=== PATIENT | male | born 1950 | race Caucasian/White ===

== ENCOUNTER 2021-04-26 10:54 | Inpatient (IN) | payer MEDICARE, OTHER ==
[~2021-04-26] VITALS: Ht 165.1 cm; Wt 63.6 kg
[2021-04-26 12:26] LABS: BASO # 0.1 (0.0-0.2); BASO % 0.8 % (0.0-2.0); EOS # 0.1 (0.0-0.7); EOS % 2.1 % (0-4.0); GRAN # 4.4 (1.4-6.5); GRAN % 66.6 % (42.2-75.2); HEMOGLOBIN 15.9 g/dl (13.5-18.0); LYMPH # 1.4 (1.2-3.4); LYMPH % 22.1 % (20.0-51.0); MEAN CELL VOLUME 97 fl (80.0-100.0); MEAN CORPUSCULAR HEMOGLOBIN 34 pg (27.0-31.0); MEAN CORPUSCULAR HGB CONC 35 g/dl (33.0-37.0); MEAN PLATELET VOLUME 11.3 fl (7.4-10.4); MONO # 0.5 (0.1-0.6); MONO % 8.1 % (1.7-9.3); PLATELET COUNT 222 K/mm3 (130-400); RED BLOOD COUNT 4.64 M/mm3 (4.20-5.60)
[2021-04-26 12:33] LABS: ALANINE AMINOTRANSFERASE 18 U/L (4-49); ALBUMIN 4.3 gm/dL (3.5-5.0); ALKALINE PHOSPHATASE 64 U/L (50-136); ANION GAP 9 mmol/L (7-16); AST,SGOT 25 U/L (15-37); BILIRUBIN,TOTAL 0.9 mg/dL (0.0-1.0); BLOOD UREA NITROGEN 11 mg/dL (9-20); CALCIUM 9.1 mg/dL (8.4-10.2); CARBON DIOXIDE 23 mmol/L (22-30); CHLORIDE 106 mmol/L (98-107); CREATINE KINASE 143 U/L (55-170); CREATININE, serum 0.61 (0.66-1.25); GLUCOSE 94 mg/dL (74-106); LIPASE 76 U/L (23-300); POTASSIUM 4.2 mmol/L (3.4-5.0); SODIUM 138 mmol/L (137-145); TOTAL PROTEIN 7.3 gm/dL (6.4-8.2)
[2021-04-26 12:34] LABS: PROTHROMBIN TIME 11.6 SECONDS (9.7-12.8)
[2021-04-26 12:36] LABS: C-REACTIVE PROTEIN < 0.5 mg/dL (0.0-0.9)
[2021-04-26 12:53] LABS: ERYTHROCYTE SEDIMENTATION RATE 5 mm/hr (0-30)
[2021-04-26 13:02] LABS: TROPONIN-I < 0.012 ng/mL (0.000-0.035)
[2021-04-26 15:35] VITALS: BP 152/91; PULSE 57; TEMP 98.1
[2021-04-26 16:55] LABS: CREATINE KINASE 148 U/L (55-170)
[2021-04-26 16:56] LABS: ALCOHOL(ethanol),MEDICAL < 10 mg/dL; C-REACTIVE PROTEIN < 0.5 mg/dL (0.0-0.9)
--- NOTE | 2021-04-26 18:00 | NUR ---
Patient transferred from ED to room 355 for increased weakness. Upon initial assessment, VSS, S1 and S2 sounds present, radial and pedal pulses +2 bilaterally, lungs COA, reddened but blanchable spot on left buttock, generalized scabbing noted. Patient A&Ox4, but slurred speech noted. Patient states that speech has been slurred since his previous CVA, but has worsened within the last week. Generalized weakness noted, weakness more profound on left side. Patient reports numbness and tingling in BLE and BUE. Cole catheter in place, no kinks in tubing, securement device in place. Patient denies any pain, discomfort, or further needs at time. Fall precautions in place. Admission paperwork completed, patient down for MRI before med rec completed. Will inform oncoming shift.
[2021-04-26] MEDS ORDERED: NORVASC 5MG5 MG/TAB (18:49)
[2021-04-26] MEDS ORDERED: PRINIVIL10 MG (18:50)
[2021-04-26] MEDS ORDERED: LIPITOR 10MG10 MG PO (18:50)
[2021-04-26 19:36] VITALS: BP 149/82; PULSE 59; TEMP 98.5
--- NOTE | 2021-04-26 20:46 | NUR ---
Initial shift assessment done- denies pain just says he is very weak- all extremities weak, L>R,, has some slightly slurred speech, pt states that is his normal but is more pronounced now-- very hungry-is eating a sandwich /cookis at this time, no other requests.
[2021-04-26 21:03] LABS: COLLECTION METHOD CLEAN CATCH
[2021-04-26 21:16] LABS: MUCOUS Present /lpf; PH 5 (5-8); SQUAMOUS EPITHELIAL None Seen /hpf; URINE APPEARANCE Clear; URINE BACTERIA None Seen /hpf; URINE BILIRUBIN Negative (NEGATIVE); URINE BLOOD 3+ (NEGATIVE); URINE COLOR Yellow; URINE GLUCOSE Negative (NEGATIVE); URINE KETONE 1+ (NEGATIVE); URINE LEUKOCYTE ESTERASE 2+ (NEGATIVE); URINE NITRATE Negative (NEGATIVE); URINE PROTEIN(semi-quant) Negative (NEGATIVE); URINE RBC >50 /hpf; URINE UROBILINOGEN Negative (NEGATIVE)
[2021-04-26 21:19] LABS: TRICYCLIC ANTIDEPRESS URINE NEGATIVE
--- NOTE | 2021-04-26 22:00 | NUR ---
UA results in- Neha SARAHY called, will start on IV Rocephin
[2021-04-26 23:23] VITALS: BP 141/80; PULSE 64; TEMP 97.4
[2021-04-27 03:35] VITALS: BP 133/72; PULSE 60; TEMP 98.4
--- NOTE | 2021-04-27 06:05 | NUR ---
Quiet night- has slept well, VSS, no changes throughout the night- bed alarm on
[2021-04-27 08:21] VITALS: BP 148/74; PULSE 59; TEMP 98.1
--- NOTE | 2021-04-27 08:50 | NUR ---
Shift assessment complete. Pt A&Ox4. Generalized weakness, worse to left side. Hand book cleaner weak and unequal. Heart RRR. Lungs CTA. Cole in place w/clear yellow output. Informed by Caren WEATHERS that pt is to transfer out to [facility] in today. Continuing to monitor.
[2021-04-27 11:36] LABS: HEMATOCRIT 45.3 % (42.0-52.0); HEMOGLOBIN 15.8 g/dl (13.5-18.0); MEAN CELL VOLUME 98 fl (80.0-100.0); MEAN CORPUSCULAR HEMOGLOBIN 34 pg (27.0-31.0); MEAN CORPUSCULAR HGB CONC 35 g/dl (33.0-37.0); MEAN PLATELET VOLUME 11.1 fl (7.4-10.4); PLATELET COUNT 201 K/mm3 (130-400); RED BLOOD COUNT 4.61 M/mm3 (4.20-5.60); REDCELL DISTRIBUTION WIDTH-CV 12.8 % (11.5-14.5)
[2021-04-27 11:37] LABS: CALCIUM 9.3 mg/dL (8.4-10.2); CHOLESTEROL RISK RATIO 3.5; CREATININE, serum 0.65 (0.66-1.25); POTASSIUM 4.1 mmol/L (3.4-5.0)
[2021-04-27 12:15] LABS: BAND 2 % (0-10); BASOPHIL 1 % (0-2); EOSINOPHIL 1 % (0-4); LYMPHOCYTE 5 % (20.0-51.0); NEUTROPHILS 89 % (42.0-75.2); PLATELET ESTIMATE NORMAL (NORMAL)
--- NOTE | 2021-04-27 12:15 | NUR ---
Called and updated pt's son Phill. Attempted to call report to Jaylyn TAYLOR at [facility]. Was placed on hold and then hung up on after holding for 3 minutes. Will try again.
[2021-04-27 12:19] VITALS: BP 148/74; PULSE 58; TEMP 98.3
--- NOTE | 2021-04-27 12:28 | NUR ---
Report called to Jaylyn TAYLOR at [facility] and all questions answered.
--- NOTE | 2021-04-27 12:46 | NUR ---
First visit from the field hand. No needs right now.
--- NOTE | 2021-04-27 12:58 | NUR ---
Pt assisted onto stretcher and transfer paperwork given to dairy equipment installer. [facility] triage notified of pt's departure via EMS at this time.
[2021-04-28 08:14] LABS: ANA SCREEN with REFLEX Negative (Negative)
[2021-04-30 05:23] LABS: VITAMIN B1 298 nmol/L (70-180)
== END 2021-04-27 12:59 | disposition short-term general hospital (02) | DRG 552 ==
LOC: COL.ER 10:54 → MEDICAL 13:37
PROVIDERS: Emergency Medicine; Physician Assistant; ADMIT Family Medicine
DX: M48.02 Spinal stenosis, cervical region (principal); N39.0 Urinary tract infection, site not specified; G95.20 Unspecified cord compression; E78.5 Hyperlipidemia, unspecified; I10 Essential (primary) hypertension; R35.0 Frequency of micturition; Z20.822 Contact with and (suspected) exposure to COVID-19; Z86.73 Personal history of transient ischemic attack (TIA), and cerebral infarction without residual deficits; Z87.891 Personal history of nicotine dependence
CPT/HCPCS: 99223-AI; 99239; A9585; J0696; J1100; J3411; J7030

== ENCOUNTER 2022-04-18 08:32 | Emergency (ER) | payer MEDICARE, OTHER ==
[~2022-04-18] VITALS: Ht 167.6 cm; Wt 58.2 kg
[~2022-04-18 08:32] MED LIST: LIPITOR 10MG10 MG PO; NORVASC 5MG5 MG/TAB; PRINIVIL10 MG
[2022-04-18 08:43] VITALS: TEMP 98.1
[2022-04-18 09:46] LABS: BASO # 0.1 K/mm3 (0.0-0.2); BASO % 1.1 % (0.0-2.0); EOS # 0.2 K/mm3 (0.0-0.7); EOS % 3.8 % (0.0-4.0); GRAN # 3.6 K/mm3 (1.4-6.5); GRAN % 56.3 % (42.2-75.2); HEMOGLOBIN 12.7 g/dl (13.5-18.0); LYMPH # 1.9 K/mm3 (1.2-3.4); LYMPH % 30.4 % (20.0-51.0); MEAN CELL VOLUME 95 fl (80.0-100.0); MEAN CORPUSCULAR HEMOGLOBIN 33 pg (27-31); MEAN CORPUSCULAR HGB CONC 35 g/dl (33.0-37.0); MEAN PLATELET VOLUME 10.4 fl (7.4-10.4); MONO # 0.5 K/mm3 (0.1-0.6); MONO % 8.2 % (1.7-9.3); PLATELET COUNT 242 K/mm3 (130-400); REDCELL DISTRIBUTION WIDTH-CV 14.2 % (11.5-14.5)
[2022-04-18 09:47] LABS: HEMATOCRIT 35.9 % (42.0-52.0)
[2022-04-18 09:55] LABS: COLLECTION METHOD CLEAN CATCH
[2022-04-18 10:03] LABS: ALBUMIN 3.8 gm/dL (3.4-4.8); BILIRUBIN,TOTAL 0.5 mg/dL (0.2-1.2); C-REACTIVE PROTEIN 0.26 mg/dL (0.00-0.50); CALCIUM 9.3 mg/dL (8.4-10.2); CREATININE, serum 0.7 mg/dL (0.72-1.25); POTASSIUM 3.9 mmol/L (3.5-4.5); TOTAL PROTEIN 6.3 gm/dL (6.2-8.1)
[2022-04-18 10:07] LABS: SQUAMOUS EPITHELIAL 0-2 /hpf (0-10); URINE BACTERIA None Seen /hpf (NONE SEEN); URINE RBC None Seen /hpf (0-2)
[2022-04-18 10:08] LABS: PH 6 (5-8); URINE APPEARANCE Clear (CLEAR/HAZY); URINE BLOOD Negative (NEGATIVE); URINE COLOR Yellow (YELLOW); URINE GLUCOSE Negative (NEGATIVE); URINE KETONE Negative (NEGATIVE); URINE NITRATE Negative (NEGATIVE); URINE PROTEIN(semi-quant) Negative (NEGATIVE); URINE UROBILINOGEN 0.2 (NEGATIVE)
[2022-04-18 11:00] VITALS: BP 109/69; PULSE 58
[2022-04-18] MEDS ORDERED: MEDROL 4MG DOSPA4 MG PO (11:05)
== END 2022-04-18 11:23 | disposition home or self-care (01) ==
LOC: COL.ER 08:32
PROVIDERS: Family Medicine
DX: M54.16 Radiculopathy, lumbar region (principal); Z87.891 Personal history of nicotine dependence

== ENCOUNTER → 2022-04-19 | Outpatient (CLI) | payer MEDICARE, OTHER ==
[~2022-04-19] MED LIST changes: +MEDROL 4MG DOSPA4 MG PO
== END ==
LOC: COL.RAD 09:44
DX: M51.36 Other intervertebral disc degeneration, lumbar region (principal); M48.061 Spinal stenosis, lumbar region without neurogenic claudication; M48.07 Spinal stenosis, lumbosacral region